=== PATIENT | female | born 1990 | race Caucasian/White ===

== ENCOUNTER 2020-03-25 01:31 | Inpatient (IN) | payer BC, SELFPAY ==
[2020-03-25] VITALS (246 sets, daily range): BP systolic 85–127; BP diastolic 46–95; PULSE 75–169; TEMP 36.6–37.4; O2SAT 88–100; BMI 31.4
--- NOTE | 2020-03-25 02:20 | LDADM ---
This patient, Reggie Perez, was admitted to Labor/Delivery/Recovery 102 on 03/25/20 at 01:31. Plans for labor, pain management and were discussed with patient. Patient/family oriented to hospital policies and general routines including ID bracelet, bed and alarms, visiting hours, pain management, procedures, bathroom and other care routines, personal items, smoking policy, room service/diet and guest tray routines, security routines, and visiting hours. Patient/Family are encouraged to report perceived risks to care and to ask questions if they do not understand what they are told or what they should do. See OBIX for further documentation.
[2020-03-25 02:29] LABS: Basophils Absolute Auto 0.1 K/mm3 (0.0-0.1); Basophils Percent Auto 0.7 % (0.2-1.2); Eosinophils Absolute Auto 0.1 K/mm3 (0-0.3); Eosinophils Percent Auto 1.2 % (0-4.4); Hematocrit 31.1 % (37.0-47.0); Immature Granulocyte Absolute 0.23 K/mm3 (0.00-0.031); Immature Granulocyte Percent A 2.4 % (0-0.5); Lymphocytes Absolute Auto 2.32 K/mm3 (0.9-3.2); Lymphocytes Percent Auto 23.9 % (18.3-44.2); Mean Corpuscular HGB Conc 32.2 g/dl (32-36); Mean Corpuscular Hemoglobin 26.5 pg (26-34); Mean Corpuscular Volume 82.3 fl (80-100); Mean Platelet Volume 10.2 fl (7.4-10.4); Monocytes Absolute Auto 0.7 K/mm3 (0.1-0.6); Monocytes Percent Auto 7.1 % (2.6-8.5); Neutrophils Absolute Auto 6.3 K/mm3 (1.3-6.7); Neutrophils Percent Auto 64.7 % (45.5-73.1); Platelet Count Result 299 k/mm3 (150-375); Red Blood Count 3.78 M/mm3 (4.2-5.4); Red Cell Distribution Width 13.9 % (11.5-14.5); White Blood Count 9.7 K/mm3 (4.5-10.0)
--- NOTE | 2020-03-25 06:57 | P.PNAN_ITS ---
Anes - Eval Pre Procedure Procedure: labor epidural Date/Time: 03/25/20 06:57 Preop Diagnosis: labor pain Pre Op Diagnosis: Leaking Patient Data Age: 29 Gender: F Height: 5 ft 4 in Weight: 83.1 kg Last Vital Signs Pulse 107 H 03/25/20 06:31 BP 103/66 03/25/20 06:31 Allergies Allergy/AdvReac Type Severity Reaction Status Date / Time No Known Allergies Allergy Unverified 01/18/14 01:38 Home Medications Medication Instructions Recorded Confirmed Type PNV cmb#95-ferrous fumarate-FA 1 tablet PO DAILY 02/27/20 02/27/20 History [] levothyroxine [Synthroid] 75 mcg PO DAILY 02/27/20 02/27/20 History Laboratory Tests 03/25/20 03/25/20 03/25/20 02:17 02:17 02:17 WBC 9.7 K/mm3 K/mm3 (4.5-10.0) RBC 3.78 M/mm3 L M/mm3 (4.2-5.4) Hgb 10.0 g/dL L g/dL (12.0-15.0) Hct 31.1 % L % (37.0-47.0) MCV 82.3 fl fl (80-100) MCH 26.5 pg pg (26-34) MCHC 32.2 g/dl g/dl (32-36) RDW 13.9 % % (11.5-14.5) Plt Count 299 k/mm3 k/mm3 (150-375) MPV 10.2 fl fl (7.4-10.4) Immature Gran % (Auto) 2.4 % H % (0-0.5) Neut % (Auto) 64.7 % % (45.5-73.1) Lymph % (Auto) 23.9 % % (18.3-44.2) [place] % (Auto) 7.1 % % (2.6-8.5) Eos % (Auto) 1.2 % % (0-4.4) Baso % (Auto) 0.7 % % (0.2-1.2) Lymph # (Auto) 2.32 K/mm3 K/mm3 (0.9-3.2) [place] # (Auto) 0.7 K/mm3 H K/mm3 (0.1-0.6) Eos # (Auto) 0.1 K/mm3 K/mm3 (0-0.3) Baso # (Auto) 0.1 K/mm3 K/mm3 (0.0-0.1) Abs Immat Gran (auto) 0.23 K/mm3 H K/mm3 (0.00-0.031) Absolute Neuts (auto) 6.3 K/mm3 K/mm3 (1.3-6.7) Absolute Nucleated RBC 0.0 K/mm3 K/mm3 (0.0-0.012) Nucleated RBC % 0.0 % % (0.0-0.2) RPR Pending Blood Type A Positive Antibody Screen Negative Patient hx anesthesia problems: none Family hx anesthesia problems: none [facility] Family History Family History (Updated 02/27/20 @ 14:39 by Misael Schulz RN) Other No pertinent family history Social History Social History Smoking status: Never smoker Second hand tobacco smoke exposure: No Alcohol intake: current Substance use: never Gender identity (if verbalized by the patient): Female Spiritual care concerns: No Exam Day of Procedure 03/25/20 06:57
--- NOTE | 2020-03-25 07:41 | PM.IMHP ---
H&P: HPI History of Present Illness Date/Time: 03/25/20 07:41 Chief complaint: Leaking Narrative: Reggie Perez is a 29 year old female 3 para 1 with an unknown last menstrual period, but an EDC of [id number] week ultrasound presents at term in active labor. She had a previous miscarriage and x1 opts for vaginal after DIVINA risks and benefits were reviewed in full Review of Systems Review of Systems: All systems reviewed & are unremarkable except as noted in HPI and below PMFSH Family History Family History Other No pertinent family history Social History Social History Smoking status: Never smoker Second hand tobacco smoke exposure: No Alcohol intake: current Substance use: never Gender identity (if verbalized by the patient): Female Spiritual care concerns: No Meds Home Medications and Allergies Home Medications Medication Instructions Recorded Confirmed Type PNV cmb#95-ferrous fumarate-FA 1 tablet PO DAILY 02/27/20 02/27/20 History [] levothyroxine [Synthroid] 75 mcg PO DAILY 02/27/20 02/27/20 History Allergies Allergy/AdvReac Type Severity Reaction Status Date / Time No Known Allergies Allergy Unverified 01/18/14 01:38 Vital Signs Vital Signs - 24 hr 03/25/20 01:52 03/25/20 02:01 03/25/20 02:16 Temperature Pulse Rate 98 98 101 H Blood Pressure 115/69 106/67 106/70 03/25/20 02:31 03/25/20 02:46 03/25/20 03:01 Temperature Pulse Rate 105 H 96 93 Blood Pressure 109/73 107/70 102/70 03/25/20 03:16 03/25/20 03:31 03/25/20 03:46 Temperature Pulse Rate 94 95 99 Blood Pressure 105/65 109/70 109/68 03/25/20 04:01 03/25/20 04:23 03/25/20 04:31 Temperature Pulse Rate 104 H 91 96 Blood Pressure 106/64 118/75 113/67 03/25/20 04:46 03/25/20 05:01 03/25/20 05:16 Temperature Pulse Rate 101 H 96 105 H Blood Pressure 107/74 108/71 117/77 03/25/20 05:31 03/25/20 05:46 03/25/20 06:01 Temperature Pulse Rate 97 101 H 100 Blood Pressure 110/71 114/73 114/73 03/25/20 06:16 03/25/20 06:30 03/25/20 06:31 Temperature 98.4 F Pulse Rate 99 107 H Blood Pressure 109/68 103/66 03/25/20 07:01 03/25/20 07:30 03/25/20 07:31 Temperature 98.6 F Pulse Rate 94 97 Blood Pressure 111/71 104/75 Exam Const: General: no acute distress Eyes: General: appearance normal, both eyes and all related structures Neck: Neck: supple and no JVD Thyroid: thyroid normal Resp: Effort & Inspection: normal respiratory effort Auscultation: clear to auscultation bilaterally Cardio: Rate: regular rate Rhythm: regular rhythm GI: Inspection: non-distended GI Palp: Yes Soft to palpation, No Tenderness to palpation present (GI) and No Guarding due to palpation present (GI) Auscultation: normal bowel sounds : General: Yes bladder normal to palpation External Female Exam: normal external appearance Speculum Exam - Vagina: normal vaginal discharge and No vaginal bleeding Speculum Exam - Cervix: nontender Bimanual exam- vagina & uterus: bladder normal to palpation and No Cervical tenderness present OB/external & speculum: No vaginal bleeding Skin: General skin exam: no rashes or lesions noted Extrem: General: normal to inspection and no edema Psych: Mental Status: mental status grossly normal Affect: normal affect H&P: Results Labs Labs: Short CBC 03/25/20 Range/Units 02:17 WBC 9.7 (4.5-10.0) K/mm3 Hgb 10.0 L (12.0-15.0) g/dL Hct 31.1 L (37.0-47.0) % Plt Count 299 (150-375) k/mm3 Assessment and Plan Additional Plan impression: 39+ week with spontaneous rupture membranes / previous section Plan: Attempted vaginal after . Will hold off on Pitocin augmentation per patient request
[2020-03-25] MEDS: LACTATED RINGERS 1,000 ML 125 ML IV CONT ×4 (09:11→16:27)
[2020-03-25 09:37] LABS: Rapid Plasma Reagin Non-Reactive (NonReactive)
[2020-03-25] MEDS: OXYTOCIN 30 UNITS/NS 500 ML 30 UNITS/500 ML BAG IV CONT (12:19)
--- NOTE | 2020-03-25 13:10 | P.PNOB_ITS ---
OB - PN: Subj Subjective Date/time seen: 03/25/20 13:10 agreed to low dose pit iupc in/epidural working fhts ok OB - PN: Obj Data Labs CBC & Chem 7: 03/25/20 02:17 Labs: Laboratory Results - last 24 hr 03/25/20 03/25/20 03/25/20 02:17 02:17 02:17 WBC 9.7 RBC 3.78 L Hgb 10.0 L Hct 31.1 L MCV 82.3 MCH 26.5 MCHC 32.2 RDW 13.9 Plt Count 299 MPV 10.2 Immature Gran % (Auto) 2.4 H Neut % (Auto) 64.7 Lymph % (Auto) 23.9 [place] % (Auto) 7.1 Eos % (Auto) 1.2 Baso % (Auto) 0.7 Lymph # (Auto) 2.32 [place] # (Auto) 0.7 H Eos # (Auto) 0.1 Baso # (Auto) 0.1 Abs Immat Gran (auto) 0.23 H Absolute Neuts (auto) 6.3 Absolute Nucleated RBC 0.0 Nucleated RBC % 0.0 RPR Non-reactive Blood Type A Positive Antibody Screen Negative OB - PN A/P Time Spent With Patient Time: Total time spent is greater than 50% in coordination of care (as documented) at patient's floor/unit and/or counseling patient:
--- NOTE | 2020-03-25 14:58 | PM.OBPNVD ---
OB - PN: Subj Subjective Date/time seen: 03/25/20 14:58 few variables were seen. Recovery has occurred heart tones are reassuring. Will continue to watch closely OB - PN: Obj Data Labs CBC & Chem 7: 03/25/20 02:17 Labs: Laboratory Results - last 24 hr 03/25/20 03/25/20 03/25/20 02:17 02:17 02:17 WBC 9.7 RBC 3.78 L Hgb 10.0 L Hct 31.1 L MCV 82.3 MCH 26.5 MCHC 32.2 RDW 13.9 Plt Count 299 MPV 10.2 Immature Gran % (Auto) 2.4 H Neut % (Auto) 64.7 Lymph % (Auto) 23.9 [place] % (Auto) 7.1 Eos % (Auto) 1.2 Baso % (Auto) 0.7 Lymph # (Auto) 2.32 [place] # (Auto) 0.7 H Eos # (Auto) 0.1 Baso # (Auto) 0.1 Abs Immat Gran (auto) 0.23 H Absolute Neuts (auto) 6.3 Absolute Nucleated RBC 0.0 Nucleated RBC % 0.0 RPR Non-reactive Blood Type A Positive Antibody Screen Negative OB - PN A/P Time Spent With Patient Time: Total time spent is greater than 50% in coordination of care (as documented) at patient's floor/unit and/or counseling patient:
[2020-03-25] MEDS: ACETAMINOPHEN 500 MG TABLET 1000 MG PO (16:46)
[2020-03-25] MEDS: ONDANSETRON INJ 4 MG/2 ML VIAL IV PUSH (17:43)
[2020-03-25] MEDS: AMPICILLIN 2 GM/NS 100 ML 2 GM/100 ML BAG IVPB (18:52)
--- NOTE | 2020-03-25 22:29 | P.PCNOB_ITS ---
OB - Delivery Note Procedure Delivery date: 03/25/20 Procedure: Intrapartal events: None Induction method: none Delivery augmentation: pitocin Delivery monitor: external FHT Route of delivery: Episiotomy description: None Laceration description: None Specimen: No Estimated blood loss (mL): 57 Anesthesia type: Epidural Disposition: floor [place] Baby Date of : 03/25/20 Time of : 22:21 Weeks of gestation at delivery: 39 gender: Male presentation: vertex position: Right Occiput Anterior Placenta delivery description: Spontaneous cord vessel description: 3 Vessels score one minute: 8 score five minutes: 9
--- NOTE | 2020-03-25 22:32 | PM.DS ---
DS: Admitting Diagnosis Admitting Diagnosis Admitting Diagnosis: Leaking term iup previos c section DS: Summary Time Spent with Patient Time attestation: Total time spent providing and/or coordinating discharge services: Exam Const: General: no acute distress Eyes: General: appearance normal, both eyes and all related structures Neck: Neck: supple and no JVD Thyroid: thyroid normal Resp: Effort & Inspection: normal respiratory effort Auscultation: clear to auscultation bilaterally Cardio: Rate: regular rate Rhythm: regular rhythm GI: Inspection: non-distended GI Palp: Yes Soft to palpation, No Tenderness to palpation present (GI) and No Guarding due to palpation present (GI) Auscultation: normal bowel sounds : General: Yes bladder normal to palpation External Female Exam: normal external appearance Speculum Exam - Vagina: normal vaginal discharge and No vaginal bleeding Speculum Exam - Cervix: nontender Bimanual exam- vagina & uterus: bladder normal to palpation and No Cervical tenderness present OB/external & speculum: No vaginal bleeding Skin: General skin exam: no rashes or lesions noted Extrem: General: normal to inspection and no edema Psych: Mental Status: mental status grossly normal Affect: normal affect DS: Data Data Completed and Pending Labs on day of discharge: Labs from last 24 hours 03/25/20 03/25/20 03/25/20 02:17 02:17 02:17 WBC 9.7 RBC 3.78 L Hgb 10.0 L Hct 31.1 L MCV 82.3 MCH 26.5 MCHC 32.2 RDW 13.9 Plt Count 299 MPV 10.2 Immature Gran % (Auto) 2.4 H Neut % (Auto) 64.7 Lymph % (Auto) 23.9 [place] % (Auto) 7.1 Eos % (Auto) 1.2 Baso % (Auto) 0.7 Lymph # (Auto) 2.32 [place] # (Auto) 0.7 H Eos # (Auto) 0.1 Baso # (Auto) 0.1 Abs Immat Gran (auto) 0.23 H Absolute Neuts (auto) 6.3 Absolute Nucleated RBC 0.0 Nucleated RBC % 0.0 RPR Non-reactive Blood Type A Positive Antibody Screen Negative Discharge Plan Discharge Attending physician on discharge: Samuel Zarco Discharging Clinician: Hermes Lawrence Patient Disposition: Home, Self-Care Activity: pelvic rest Diet: regular Discharge Instructions: Call or return if temperature above 100.4? F, increased abdominal pain, increased vaginal bleeding or any new problems. Education: Mom and Baby Guide Given to: Mother Follow-Up: Call your delivering provider's office for an appointment to be seen. Mom and baby should come to the [facility] for the follow-up appointment. Appointment Date/Time: March 30, 2020 at 10:00 am What to expect at your follow-up visit: Physical Assessment Call [phone] if you are unable to keep your appointment time. BREAST CARE: * Wear a snug supportive bra. * For engorgement discomfort: Breast Feeding: * Apply warm moist washcloths * Express milk as needed to relieve engorgement * Wear loose clothing Bottle Feeding: * May apply ice packs * For sore nipples: * Identify correct latch-on * Apply warm moist washcloths before and after nursing * Air dry nipples after nursing * May apply Lansinoh cream to nipples EPISIOTOMY/PERINEAL CARE: * Until bleeding stops, use your kyle bottle after urinating * Change your pad frequently throughout the day * You may take sitz baths several times a day (fill your bathtub with warm water and soak for 20 minutes.) Do NOT bathe in the water * No tub baths until seen by your physician - You may shower ACTIVITY: * Rest as much as possible. * Do not exercise or lift anything heavier than your baby (such as laundry or other children.) * Avoid stairs or driving as much as possible. * Do not put anything into the vagina. No douching, tampons, or sexual activity until seen by physician. NOTIFY PHYSICIAN IF YOU HAVE ANY QUESTIONS OR IF ANY OF THE FOLLOWING SYMPTOMS
[2020-03-25] MEDS: OXYTOCIN 30 UNITS/NS 500 ML 30 UNITS/500 ML BAG 125 UNITS IV CONT (22:54)
[2020-03-26] VITALS (7 sets, daily range): BP systolic 91–108; BP diastolic 51–68; PULSE 81–95; RESP 16–18; TEMP 36.4–36.9; O2SAT 96–100
[2020-03-26] MEDS: BENZOCAINE 20% AER SPR (*SP) 56 GM CAN 1 SPRAY TOPICAL (01:21)
[2020-03-26] MEDS: WITCH HAZEL 40 PADS 1 PAD TOPICAL (01:21)
[2020-03-26] MEDS: IBUPROFEN 600 MG TABLET PO ×3 (01:39→17:32)
--- NOTE | 2020-03-26 03:01 | OBPPTRN ---
Patient transferred to post room # 290 via wheel chair. Support person present. Oriented to unit, room, information board, rooming in, admission packet and security measures. Patient verbalizes understanding.
[2020-03-26 05:24] LABS: Hematocrit 30.2 % (37.0-47.0); Hemoglobin 9.7 g/dL (12.0-15.0)
--- NOTE | 2020-03-26 06:00 | PM.OBPNVD ---
OB - PN: Subj Subjective Date/time seen: 03/26/20 06:00 Patient comments: no complaints and pain well controlled baby status: doing well and nursing well OB - PN: Obj Data Labs CBC & Chem 7: 03/26/20 04:55 Labs: Laboratory Results - last 24 hr 03/25/20 03/26/20 02:17 04:55 Hgb 9.7 L Hct 30.2 L RPR Non-reactive OB - PN A/P Plan day: 1 Plan: routine care Time Spent With Patient Time: Total time spent is greater than 50% in coordination of care (as documented) at patient's floor/unit and/or counseling patient: Time with patient: less than 15 minutes Review of Systems Review of Systems: All systems reviewed & are unremarkable except as noted in HPI and below Exam Const: General: no acute distress Eyes: General: appearance normal, both eyes and all related structures Neck: Neck: supple and no JVD Thyroid: thyroid normal Resp: Effort & Inspection: normal respiratory effort Auscultation: clear to auscultation bilaterally Cardio: Rate: regular rate Rhythm: regular rhythm GI: Inspection: non-distended GI Palp: Yes Soft to palpation, No Tenderness to palpation present (GI) and No Guarding due to palpation present (GI) Auscultation: normal bowel sounds : General: Yes bladder normal to palpation External Female Exam: normal external appearance Speculum Exam - Vagina: normal vaginal discharge and No vaginal bleeding Speculum Exam - Cervix: nontender Bimanual exam- vagina & uterus: bladder normal to palpation and No Cervical tenderness present OB/external & speculum: No vaginal bleeding Skin: General skin exam: no rashes or lesions noted Extrem: General: normal to inspection and no edema Psych: Mental Status: mental status grossly normal Affect: normal affect
--- NOTE | 2020-03-26 09:25 | WPDANLDPN2 ---
Anes-Prog Note L&D Date/Time: 03/26/20 09:25 Comfortable throughout: labor and delivery Neuraxial method: epidural Epidural/Spinal procedure site: clean & non-tender Neuro status: Neuro function grossly intact. Cardiovascular status: normal Respiratory status: normal Airway patency: baseline Mental status: baseline Post-Op hydration status: normal Vital Signs: Last Vital Signs Temp 36.9 C 03/26/20 01:30 Pulse 85 03/26/20 01:30 Resp 18 03/26/20 01:30 BP 98/63 L 03/26/20 01:30 Pulse Ox 96 03/26/20 01:30 Pain score (VAS): 1 I/O: Intake & Output 03/25/20 03/26/20 03/26/20 23:59 07:59 15:59 Intake Total 2300 Balance 2300 Post-procedural complaints: none Patient feedback: Patient satisfied with anesthetic care.
[2020-03-26] MEDS: POLYSACCHARIDE IRON COMPLEX 150 MG CAPSULE PO ×2 (09:32→17:32)
[2020-03-26] MEDS: DOCUSATE SODIUM 100 MG CAPSULE PO ×2 (09:32→17:32)
--- NOTE | 2020-03-26 20:25 | PC.NURSE ---
Patient to view the discharge video Mother & Baby Care, The First Two Weeks online. Patient was given the opportunity and encouraged to ask questions. Patient verbalized understanding of information shared and has been given the mother/baby guide for home reference.
[2020-03-27 07:00] VITALS: BP 94/61; PULSE 72; RESP 20; TEMP 36.6
--- NOTE | 2020-03-27 08:28 | PM.OBPNVD ---
OB - PN: Subj Subjective Date/time seen: 03/27/20 08:28 Narrative: Pain OK. Would like to go home. OB - PN: Obj Data Labs CBC & Chem 7: 03/26/20 04:55 OB - PN A/P Plan Comments: A: PPD#2, doing well. P: Home to f/u 6 weeks. Exam Psych: Other: AVSS ABD soft, nontender, fundus firm EXT nontender
[2020-03-27] MEDS: POLYSACCHARIDE IRON COMPLEX 150 MG CAPSULE PO (10:15)
[2020-03-27] MEDS: DOCUSATE SODIUM 100 MG CAPSULE PO (10:15)
[2020-03-30 09:52] VITALS: BP 116/64; PULSE 72; RESP 20; TEMP 36.6; O2SAT 98
== END 2020-03-27 13:00 | disposition home or self-care (01) | DRG 807 ==
LOC: ANHLDR 01:51 → ANHOB2 03-27 08:30 → ANHLDR 03-29 17:28 → ANHOB2 03-29 17:28
PROVIDERS: Admitting Provider Obstetrics & Gynecology; Visit Provider Obstetrics & Gynecology
DX: O34.211 Maternal care for low transverse scar from previous cesarean delivery (principal); Z37.0 Single live birth; Z3A.39 39 weeks gestation of pregnancy; O99.824 Streptococcus B carrier state complicating childbirth; O76 Abnormality in fetal heart rate and rhythm complicating labor and delivery
CPT/HCPCS: 36415; 85014; 85018; 85025; 86592; 86850; 86900; 86901; A9270; J0290; J2405; J2590; J2795; J7120